=== PATIENT | male | born 1980 | race Caucasian/White ===

== ENCOUNTER 2016-08-29 13:47 | Emergency (ER) | payer MEDICAID ==
[2016-08-29] MEDS ORDERED: oxyCOD/ACETAMIN 5 MG/325 MG TABLET PO STA (14:37)
[2016-08-29] MEDS ORDERED: oxyCOD/ACETAMIN 5 MG/325 MG TABLET PO ONE (14:38)
== END 2016-08-29 16:31 | disposition home or self-care (01) ==
DX: S39.012A Strain of muscle, fascia and tendon of lower back, initial encounter (principal); X50.9XXA Other and unspecified overexertion or strenuous movements or postures, initial encounter; Y93.23 Activity, snow (alpine) (downhill) skiing, snowboarding, sledding, tobogganing and snow tubing
CPT/HCPCS: 72125; 72128; 99283; A9270